=== PATIENT | male | born 1960 | race Caucasian/White ===

== ENCOUNTER 2018-06-10 19:52 | Emergency (ER) | payer MEDICARE, BC ==
--- NOTE | 2018-06-10 22:06 | EDM.PDOC ---
ED HPI GENERAL MEDICAL PROBLEM - General Chief Complaint: Genitourinary Problem Stated Complaint: PEEING BLOOD [id number] Time Seen by Provider: 06/10/18 21:35 Source of Information: Reports: Patient, Family, RN, RN Notes Reviewed History Limitations: Reports: No Limitations - History of Present Illness INITIAL COMMENTS - FREE TEXT/NARRATIVE: This is a 57 year old man with a significant history of left sided ureteric stone (s/p removal and stenting 06/05/18) and CAD (s/p stents on aspirin and plavix) who is presenting for acute hematuria. Patient states he had pink colored urine on friday. He had reece blood and clots in his urine since 3pm today. His left sided abdominal pain is at baseline at similar to what it was last week. He does not have lightheadedness, chest pain, dyspnea, fevers, or chills. No nausea or vomiting. Patient had left sided urological stenting and stone removal last friday at [facility]. He tolerated the procedure with no reported complications. Onset: Today, Sudden Right Flank Pain Score (Numeric/FACES): 6 - Related Data Allergies Allergy/AdvReac Type Severity Reaction Status Date / Time No Known Allergies Allergy Verified 06/10/18 19:59 Home Meds: Home Meds Clopidogrel Bisulfate [Clopidogrel] 1 tab PO DAILY 10/23/13 [History] Fenofibrate,Micronized [Fenofibrate] 1 tab PO DAILY 10/23/13 [History] Fenofibric Acid (Choline) [Trilipix] 1 tab PO DAILY 10/23/13 [History] Metoprolol Tartrate 50 mg PO BID 10/23/13 [History] Ramipril [Altace] 1 tab PO DAILY 10/23/13 [History] metFORMIN [Glucophage] 1 tab PO BIDAC 10/23/13 [History] Acetaminophen [Acetaminophen Extra Strength] 2 tab PO Q6HR PRN 02/23/14 [History ] Aspirin [Ecotrin] 81 mg PO DAILY 02/23/14 [History] Docusate Sodium [Colace] 100 mg PO BID 02/23/14 [History] Multivitamin [Multivitamins] 1 tab PO DAILY 02/23/14 [History] QUEtiapine [SEROquel] 50 mg PO DAILY 02/23/14 [History] atorvaSTATin [Lipitor] 10 mg PO BEDTIME 02/23/14 [History] Clopidogrel [Plavix] 75 mg PO DAILY 06/10/18 [History] Past Medical History Genitourinary History: Reports: Renal Calculus Endocrine/Metabolic History: Reports: Diabetes, Type II - Past Surgical History Cardiovascular Surgical History: Reports: Pacer, Other (See Below) Other Cardiovascular Surgeries/Procedures: Defibrilator GI Surgical History: Reports: Appendectomy, Cholecystectomy Male Surgical History: Reports: Ureteral Stent Social & Family History - Tobacco Use Smoking Status *Q: Never Smoker - Caffeine Use Caffeine Use: Reports: None - Recreational Drug Use Recreational Drug Use: No ED ROS GENERAL - Review of Systems Review Of Systems: ROS reveals no pertinent complaints other than HPI. ED EXAM, RENAL/ - Physical Exam Exam: See Below Exam Limited By: No Limitations General Appearance: Alert, WD/WN, No Apparent Distress Eye Exam: Bilateral Eye: EOMI, Normal Inspection Ears: Normal External Exam, Hearing Grossly Normal Nose: Normal Inspection Throat/Mouth: Normal Inspection, Normal Voice, No Airway Compromise Head: Atraumatic, Normocephalic Neck: Normal Inspection, Supple, Non-Tender, Full Range of Motion Respiratory/Chest: No Respiratory Distress, Lungs Clear, Normal Breath Sounds, No Accessory Muscle Use, Chest Non-Tender Cardiovascular: Normal Peripheral Pulses, Regular Rate, Rhythm, No Edema, No Gallop, No JVD, No Murmur, No Rub GI/Abdominal: Normal Bowel Sounds, Soft, Tender (LLQ, ) (Male) Exam: No Hernia, Normal Inspection, Other (Gross hematuria passing clots with urination, not feeling of completely emptying bladder) Rectal (Males) Exam: Deferred Back Exam: Normal Inspection, Full Range of Motion Extremities: Normal Inspection, Normal Range of Motion, Non-Tender, No Pedal Edema, Normal Capillary Refill Neurological: Alert, Oriented, CN II-XII Intact, Normal Cognition, Normal Gait, Normal Reflexes, No Motor/Sensory Deficits Psychiatric: Normal Affect, Normal Mood Skin Exam: Warm, Dry, Intact, Normal Color, No Rash Lymphatic: No Adenopathy Course - Vital Signs Last Recorded V/S: Last Vital Signs Temp 98.3 F 06/10/18 22:42 Pulse 80 06/10/18 22:42 Resp 15 06/10/18 22:42 BP 113/86 06/10/18 22:42 Pulse Ox 94 L 06/10/18 22:42 - Orders/Labs/Meds Orders: Active Orders 24 hr Category Date Time Status Bladder Scan [RC] ASDIRECTED Care 06/10/18 22:15 Active DRUG SCREEN URINE BIORAD [URCHEM] Stat Lab 06/10/18 20:12 Ordered UA W/MICROSCOPIC [URIN] Stat Lab 06/10/18 20:12 Ordered Labs: Laboratory Tests 06/10/18 06/10/18 06/10/18 Range/Units 20:12 20:12 22:34 WBC 11.9 H (5.0-10.0) 10^3/uL RBC 5.34 (4.6-6.2) 10^6/uL Hgb 14.9 (14.0-18.0) g/dL Hct 45.5 (40.0-54.0) % MCV 85.2 (80-100) fL MCH 27.9 (27.0-34.0) pg MCHC 32.7 L (33.0-35.0) g/dL Plt Count 240 (150-450) 10^3/uL Neut % (Auto) 50.7 (42.2-75.2) % Lymph % (Auto) 36.0 (20.5-50.1) % [place] % (Auto) 7.5 (2-8) % Eos % (Auto) 5.3 H (1.0-3.0) % Baso % (Auto) 0.5 (0.0-1.0) % Sodium (135-145) mmol/L Potassium (3.6-5.0) mmol/L Chloride (101-111) mmol/L Carbon Dioxide (21.0-31.0) mmol/L Anion Gap BUN (7-18) mg/dL Creatinine (0.6-1.3) mg/dL Est Cr Clr Drug Dosing mL/min Estimated GFR (MDRD) BUN/Creatinine Ratio Glucose (74-105) mg/dL Calcium (8.4-10.2) mg/dl Total Bilirubin (0.2-1.0) mg/dL AST (10-42) IU/L ALT (10-60) IU/L Alkaline Phosphatase (42-121) IU/L Total Protein (6.7-8.2) g/dl Albumin (3.2-5.5) g/dl Globulin Albumin/Globulin Ratio Urine Color Red (YELLOW) Urine Appearance Turbid (CLEAR) Urine pH 8.5 (5.0-9.0) Ur Specific [place] 1.010 (1.005-1.030) Urine Protein >=300 H (NEGATIVE) Urine Glucose (UA) 100 H (NEGATIVE) Urine Ketones 40 H (NEGATIVE) Urine Occult Blood Large H (NEGATIVE) Urine Nitrite Negative (NEGATIVE) Urine Bilirubin Large H (NEGATIVE) Urine Urobilinogen 4.0 H (0.2-1.0) mg/dL Ur Leukocyte Esterase Large H (NEGATIVE) Urine RBC Packed H /HPF Urine WBC 0-5 (0-5/HPF) /HPF Ur Epithelial Cells Rare /HPF Urine Bacteria Rare (0-FEW/HPF) /HPF Urine Opiates Screen Negative (NEGATIVE) Ur Oxycodone Screen Negative (NEGATIVE) Urine Methadone Screen Negative (NEGATIVE) Ur Barbiturates Screen Negative (NEGATIVE) U Tricyclic Antidepress Negative (NEGATIVE) Ur Phencyclidine Scrn Negative (NEGATIVE) Ur Amphetamine Screen Negative (NEGATIVE) U Methamphetamines Scrn Negative (NEGATIVE) Urine MDMA Screen Negative (NEGATIVE) U Benzodiazepines Scrn Negative (NEGATIVE) Urine Cocaine Screen Negative (NEGATIVE) U Marijuana (THC) Screen Negative (NEGATIVE) Ethyl Alcohol mg/dL 06/10/18 Range/Units 22:34 WBC (5.0-10.0) 10^3/uL RBC (4.6-6.2) 10^6/uL Hgb (14.0-18.0) g/dL Hct (40.0-54.0) % MCV (80-100) fL MCH (27.0-34.0) pg MCHC (33.0-35.0) g/dL Plt Count (150-450) 10^3/uL Neut % (Auto) (42.2-75.2) % Lymph % (Auto) (20.5-50.1) % [place]ern % (Auto) (2-8) % Eos % (Auto) (1.0-3.0) % Baso % (Auto) (0.0-1.0) % Sodium 133 L (135-145) mmol/L Potassium 3.5 L (3.6-5.0) mmol/L Chloride 100 L (101-111) mmol/L Carbon Dioxide 25.0 (21.0-31.0) mmol/L Anion Gap 11.5 BUN 20 H (7-18) mg/dL Creatinine 1.1 (0.6-1.3) mg/dL Est Cr Clr Drug Dosing 81.32 mL/min Estimated GFR (MDRD) > 60 BUN/Creatinine Ratio 18.18 Glucose 130 H (74-105) mg/dL Calcium 9.0 (8.4-10.2) mg/dl Total Bilirubin 0.5 (0.2-1.0) mg/dL AST 41 (10-42) IU/L ALT 41 (10-60) IU/L Alkaline Phosphatase 33 L (42-121) IU/L Total Protein 7.0 (6.7-8.2) g/dl Albumin 4.2 (3.2-5.5) g/dl Globulin 2.8 Albumin/Globulin Ratio 1.50 Urine Color (YELLOW) Urine Appearance (CLEAR) Urine pH (5.0-9.0) Ur Specific [place] (1.005-1.030) Urine Protein (NEGATIVE) Urine Glucose (UA) (NEGATIVE) Urine Ketones (NEGATIVE) Urine Occult Blood (NEGATIVE) Urine Nitrite (NEGATIVE) Urine Bilirubin (NEGATIVE) Urine Urobilinogen (0.2-1.0) mg/dL Ur Leukocyte Esterase (NEGATIVE) Urine RBC /HPF Urine WBC (0-5/HPF) /HPF Ur Epithelial Cells /HPF Urine Bacteria (0-FEW/HPF) /HPF Urine Opiates Screen (NEGATIVE) Ur Oxycodone Screen (NEGATIVE) Urine Methadone Screen (NEGATIVE) Ur Barbiturates Screen (NEGATIVE) U Tricyclic Antidepress (NEGATIVE) Ur Phencyclidine Scrn (NEGATIVE) Ur Amphetamine Screen (NEGATIVE) U Methamphetamines Scrn (NEGATIVE) Urine MDMA Screen (NEGATIVE) U Benzodiazepines Scrn (NEGATIVE) Urine Cocaine Screen (NEGATIVE) U Marijuana (THC) Screen (NEGATIVE) Ethyl Alcohol < 5 mg/dL Meds: Medications Discontinued Medications Generic Name Dose Route Start Last Admin Trade Name Freq PRN Reason Stop Dose Admin Morphine Sulfate 2 mg 06/10/18 22:52 06/10/18 23:05 Morphine IM 06/10/18 22:53 2 mg ONETIME ONE Administration - Re-Assessments/Exams Free Text/Narrative Re-Assessment/Exam: 06/10/18 22:58 Bladder Scan shows varying readings from 450-550mL 06/11/18 00:09 Discussed Pt case with Dr. Winters who is familiar with the patient. He states a catheter can be placed if the patient is retaining urine in the bladder. The bladder should be irrigated to clear of clots. Patient is to call the Urology clinic at [facility] tomorrow morning. Departure - Departure Time of Disposition: 00:09 Disposition: Home, Self-Care 01 Condition: Fair Clinical Impression: Hematuria, gross - Discharge Information *PRESCRIPTION DRUG MONITORING PROGRAM REVIEWED*: No *COPY OF PRESCRIPTION DRUG MONITORING REPORT IN PATIENT ANDRE: No Instructions: Indwelling Urinary Catheter Care, Adult, Hematuria, Adult Forms: ED Department Discharge Additional Instructions: Follow up with Dr. Winters in the clinic tomorrow. Return to the ER with any further problems. Stop Plavix and Aspirin until further instructed by Dr. Winters - My Orders Last 24 Hours: My Active Orders 06/10/18 20:12 DRUG SCREEN URINE BIORAD [URCHEM] Stat UA W/MICROSCOPIC [URIN] Stat 06/10/18 22:15 Bladder Scan [RC] ASDIRECTED - Assessment/Plan Last 24 Hours: My Active Orders 06/10/18 20:12 DRUG SCREEN URINE BIORAD [URCHEM] Stat UA W/MICROSCOPIC [URIN] Stat 06/10/18 22:15 Bladder Scan [RC] ASDIRECTED
[2018-06-10] MEDS ORDERED: Morphine 2 MG/ML Syringe IM ONE (22:52)
[2018-06-10 23:03] LABS: ANION GAP 11.5; CHLORIDE,CL 100 mmol/L (101-111); SODIUM,NA 133 mmol/L (135-145)
== END 2018-06-11 00:10 | disposition home or self-care (01) ==
LOC: DL.ED 19:52
DX: Z79.899 Other long term (current) drug therapy (principal); Z79.82 Long term (current) use of aspirin; Z79.84 Long term (current) use of oral hypoglycemic drugs; E11.9 Type 2 diabetes mellitus without complications; R31.0 Gross hematuria
CPT/HCPCS: 36415; 51702; 80053; 80305; 81001; 85025; 96372; 99283; G0480; J2270